=== PATIENT | male | born 1950 | race Caucasian/White ===

== ENCOUNTER → 2018-08-08 | Outpatient (CLI) | payer BC, MEDICARE ==
--- NOTE | 2018-08-08 16:26 | Diagnostic Imaging Report ---
INDICATION: Fatty liver. Ultrasound of the liver and right upper quadrant was performed in the routine fashion and compared to 07/23/2015. The liver shows diffuse increased echogenicity compatible with fatty change. The appearance is similar to the previous study. There is no focal liver lesion visualized. Portal vein is patent. The gallbladder appears unremarkable with no stones or wall thickening. The possible polyp visualized on the previous study of 07/23/2015 is not seen on today's study. Common duct is normal in caliber measuring 4.9 mm. The pancreas is obscured by overlying gas. Right kidney measures 14.3 cm in length x 7.7 x 6.5 cm. There is a cyst in the right kidney measuring about 6.9 x 5.0 x 4.3 cm, unchanged compared to the prior study. There is no ascites. IMPRESSION: Findings compatible with diffuse fatty infiltration of the liver, similar to the prior study. Gallbladder appears unremarkable and there is no biliary dilatation. The possible small polyp visualized on the prior study is not detectable on today's study. There is a stable cyst in the right kidney. Dictated by: Dictated on workstation # [id number]
== END ==
LOC: RAD 08:33
PROVIDERS: ATTEND Internal Medicine
DX: K76.0 Fatty (change of) liver, not elsewhere classified (principal); N28.1 Cyst of kidney, acquired
CPT/HCPCS: 76705

== ENCOUNTER 2020-04-24 18:57 | Emergency (ER) | payer MEDICARE ==
[~2020-04-24] VITALS: Ht 177.8 cm; Wt 85.0 kg
--- NOTE | 2020-04-24 19:26 | ED Neurological Problem ---
General Chief Complaint: General Problems/Pain Stated Complaint: FLASHING LIGHTS IN SIGHT/NAUSEA Nursing Triage Note: PT TO ED W/ C/O "SEEING LIGHTS ET NAUSEA" ONSET 30-60 MINUTES TESTER ARMATURE OR FIELDS. PT REPORTS HAS HAD SIMILAR SYMPTOMS IN THE PAST, ONSET 20YRS AGO ET SINCE THEN EVERY 3 YRS. PT DENIES C/O PAIN AT THIS TIME. Nursing Sepsis Screen: No Definite Risk Source: patient Exam Limitations: no limitations History of Present Illness Date Seen by Provider: Apr 24, 2020 Time Seen by Provider: 19:03 Initial Comments This 69-year-old gentleman with prior history of migraine presents to the emergency room with primary concern about an aura that started 30 to 60 minutes prior to arrival. He describes the aura as a blurriness in his vision that starts centrally and then clears centrally but expands peripherally. The aura is now gone. He describes feeling slightly nauseated throughout the day and generally feeling a little fatigued. He now has developed a slight headache. He did take ibuprofen 400 mg at home. He reports he has had a migraine about every 3 years or so over the past 20 years. He wanted to get checked out today to ensure he was not having a stroke or some other type of serious pathology. He describes no focal neurologic deficits. Allergies and Home Medications Allergies Coded Allergies: Penicillins (Unverified Allergy, Unknown, 04/24/20) Home Medications Ondansetron 4 Mg Tab.rapdis, 4 MG SL Q4H PRN for NAUSEA/VOMITING Prescribed by: MAL LANGSTON on 04/24/201927 Patient Home Medication List Home Medication List Reviewed: Yes Review of Systems Review of Systems Constitutional: no symptoms reported Eyes: See HPI Ears, Nose, Mouth, Throat: no symptoms reported Respiratory: no symptoms reported Cardiovascular: no symptoms reported Gastrointestinal: see HPI Genitourinary: no symptoms reported Musculoskeletal: no symptoms reported Skin: no symptoms reported Psychiatric/Neurological: See HPI Endocrine: No Symptoms Reported Hematologic/Lymphatic: No Symptoms Reported Past Pnycomg-Trxdyk-Mjmzzl Hx Past Med/Social Hx: Reviewed Nursing Past Med/Soc Hx Patient Social History Alcohol Use: Denies Use Recreational Drug Use: No Smoking Status: Never a Smoker Recent Foreign Travel: No Contact w/Someone Who Travel: No Recent Infectious Disease Expo: No Physical Abuse: No Sexual Abuse: No Mistreated: No Fear: No Past Medical History Surgeries: No Respiratory: No Cardiac: No Neurological: Yes Headaches /Migraines Genitourinary: No Gastrointestinal: No Musculoskeletal: No Endocrine: No HEENT: No Cancer: No Psychosocial: No Integumentary: No Blood Disorders: No Physical Exam Vital Signs Vital Signs - First Documented 04/24/20 19:02 Temp 36.9 Pulse 67 Resp 20 B/P (MAP) 161/79 (106) Pulse Ox 67 O2 Delivery Room Air Capillary Refill : Less Than 3 Seconds Height, Weight, BMI Height: '" Weight: lbs. oz. kg; 26.00 BMI Method: General Appearance: WD/WN, no apparent distress HEENT: PERRL/EOMI, normal ENT inspection Neck: normal inspection Respiratory: lungs clear, normal breath sounds, no respiratory distress Cardiovascular: regular rate, rhythm, no edema, no murmur Gastrointestinal: normal bowel sounds, non tender, soft Extremities: normal inspection, no pedal edema Neurologic/Psychiatric: home designer II-XII nml as tested, no motor/sensory deficits, alert, normal mood/affect, oriented x 3 Crainal Nerves: normal hearing, normal speech, PERRL Coordination/Gait: normal finger to nose (Normal gvcl-vn-mbap), normal gait Motor/Sensory: no motor deficit, no sensory deficit Skin: normal color, warm/dry Progress/Results/Core Measures Results/Orders Vital Signs/I&O 04/24/20 04/24/20 19:02 19:37 Temp 36.9 Pulse 67 58 Resp 20 18 B/P (MAP) 161/79 (106) 136/83 Pulse Ox 67 98 O2 Delivery Room Air Room Air Blood Pressure Mean: 106 Progress Progress Note : Progress Note Vital signs were stable. Patient described a classic migraine syndrome with aura that has now improved. Neuro exam was unremarkable. Patient was discharged without any further treatment or work-up. See discharge instructions for discussion. Departure Impression Primary Impression: Migraine with aura Qualified Codes: G43.109 - Migraine with aura, not intractable, without status migrainosus Disposition: 01 HOME, SELF-CARE Condition: Improved Departure-Patient Inst. Decision time for Depature: 19:22 Referrals: JENNY QUEZADA MD (PCP/Family) Primary Care Physician Patient Instructions: Migraines in Adults Add. Discharge Instructions: Your symptoms seem consistent with a migraine aura. At the onset of migraine symptoms you may take ibuprofen and/or Tylenol. It is often helpful to rest in a quiet, calm, dark environment to abort migraine symptoms. Staying well-hydrated and consuming a small amount of caffeine at onset of migraine may also be helpful. Eat a well-balanced diet, get plenty of rest, exercise, and take a multivitamin daily. These general health measures should help prevent migraines in the future. Return to care if you have worsening symptoms. If you ever have symptoms of stroke which might include facial drooping, difficulty with expressing or understanding speech, difficulty walking, numbness or weakness of a body part, abrupt loss of part of your vision, or abrupt confusion, return to the emergency room immediately. All discharge instructions reviewed with patient and/or family. Voiced understanding. Scripts Ondansetron (Ondansetron Odt) 4 Mg Tab.rapdis 4 MG SL Q4H PRN for NAUSEA/VOMITING, #10 TAB Prov: MAL BAUTISTA MD 04/24/20 Copy Copies To 1: JENNY QUEZADA MD, JOSHUA T MD Apr 24, 2020 19:26
[2020-04-24] MEDS ORDERED: ONDA4TAB11 SL (19:28)
[2020-04-24 19:37] VITALS: BP 136/83
--- NOTE | 2020-04-24 19:37 | NUR ---
PT DISCHARGED TO HOME W/ RX ET INSTR. PT TO F/U W/ PCP ET RETURN IF SYMPTOMS CHANGE OR GET WORSE. PT VOICED UNDERSTANDING
== END 2020-04-24 19:37 | disposition home or self-care (01) ==
LOC: EDUNIT# 18:57 → ER 19:02
DX: G43.109 Migraine with aura, not intractable, without status migrainosus (principal); Z88.0 Allergy status to penicillin
CPT/HCPCS: 99281

== ENCOUNTER 2020-08-05 05:35 | Outpatient (CLI) | payer MEDICARE ==
[~2020-08-05] VITALS: Ht 175.3 cm; Wt 85.0 kg
[~2020-08-05 05:35] MED LIST: ONDA4TAB11 SL
== END 2020-08-05 14:11 | disposition home or self-care (01) ==
LOC: PREOP 05:35
PROVIDERS: ATTEND Specialist
DX: Z01.818 Encounter for other preprocedural examination (principal)

== ENCOUNTER 2020-08-08 11:21 | Day surgery (SDC) | payer MEDICARE ==
[~2020-08-08] VITALS: Ht 175.3 cm; Wt 85.0 kg
[2020-08-08 11:35] VITALS: BP 133/93
[2020-08-08] MEDS: TETRACAINE 0.5% OPHTH SOLN 4 ML BTL (SINGLE DOSE ONLY) OU PRN ×4 (11:43→12:03)
[2020-08-08] MEDS ORDERED: TIMOLOL MALEATE 0.5% 5 ML (TIMOPTIC) BTL OU PRN (11:45)
[2020-08-08] MEDS ORDERED: LIDOCAINE PF 1% 2 ML VIAL IR PRN (11:45)
[2020-08-08] MEDS ORDERED: MOXIFLOXACIN OPHTH SOLN 5 MG/ML 0.3 ML SYRINGE OP ONE (11:45)
[2020-08-08] MEDS ORDERED: POVIDONE (BETADINE) OPHTH SOLN 5% 30 ML OP ONE (11:45)
[2020-08-08] MEDS: TROPICAMIDE 1% OPH SOLN (MYDRIACYL) 15 ML BTL OP SCH ×3 (11:53→12:03)
[2020-08-08] MEDS: PHENYLEPHRINE 10% OPHTH (NEO-SYN) 5 ML BTL OU SCH ×3 (11:53→12:03)
--- NOTE | 2020-08-08 12:01 | Ophthalmologist Pre-Op Note ---
Pre-Operative Progress Note H&P Reviewed The H&P was reviewed, patient examined and no changes noted. Date H&P Reviewed: Aug 08, 2020 Time H&P Reviewed: 12:01 Pre-Op Dx Cataract, Right Eye BOB KNAPP MD Aug 08, 2020 12:01
[2020-08-08] MEDS ORDERED: MIDAZOLAM 2 MG/2 ML (VERSED) VIAL ONE (12:03)
--- NOTE | 2020-08-08 12:26 | Ophthalmology Operative Report ---
Cataract removal/placement IOL PREOPERATIVE DIAGNOSIS: Cataract Right Eye POSTOPERATIVE DIAGNOSIS: Cataract Right Eye PROCEDURE: Cataract removal and placement of posterior chamber implant, right eye SURGEON: Benito Knapp ANESTHESIA: Topical with sedation COMPLICATIONS: None ESTIMATED BLOOD LOSS: Minimal DESCRIPTION OF PROCEDURE: After proper informed consent was obtained, the patient, a 69 male, was taken to the Operating Room and the right eye was anesthetized with tetracaine. The right eye was then prepped and draped in the usual manner. A wire lid speculum was placed. A paracentesis was made at the left hand position. Preservative free lidocaine was injected into the anterior chamber followed by viscoelastic. A clear corneal incision was made in the temporal position. A capsulorrhexis was preformed and the central nuclear and cortical material were removed. The posterior capsule was polished and Cruz [id number] 13.0 IOL was placed into the capsular bag. The residual viscoelastic was aspirated and balanced saline solution was injected into the anterior chamber. Moxifloxacin was injected into the anterior chamber. The wound was checked and found to be water tight. The patient tolerated the procedure well without complications. BENITO KNAPP MD Aug 08, 2020 12:26
[2020-08-08] MEDS ORDERED: acetaZOLAMIDE ER 500 MG CAP (DIAMOX SEQUELS) PO ONE (12:30)
[2020-08-08 12:36] VITALS: BP 139/80
--- NOTE | 2020-08-08 12:37 | Anesthesia-General Post-Op ---
MAC Patient Condition Mental Status/LOC: Same as Preop Cardiovascular: Satisfactory Nausea/Vomiting: Absent Respiratory: Satisfactory Pain: Controlled Complications: Absent Post Op Complications Complications None Follow Up Care/Instructions Patient Instructions None needed. Anesthesiology Discharge Order Discharge Order Patient is doing well, no complaints, stable vital signs, no apparent adverse anesthesia problems. No complications reported per nursing. CHRISTIANNE MANCILLA CRNA Aug 08, 2020 12:37
== END 2020-08-08 12:36 | disposition home or self-care (01) ==
LOC: SDC 11:21
PROVIDERS: ATTEND Specialist
DX: H25.11 Age-related nuclear cataract, right eye (principal); N52.9 Male erectile dysfunction, unspecified; Z88.0 Allergy status to penicillin; Z87.891 Personal history of nicotine dependence; Z80.41 Family history of malignant neoplasm of ovary
CPT/HCPCS: 66984; V2632

== ENCOUNTER 2020-08-15 11:18 | Day surgery (SDC) | payer MEDICARE ==
[~2020-08-15] VITALS: Ht 175 cm; Wt 85.0 kg
[2020-08-15] MEDS ORDERED: LIDOCAINE PF 1% 2 ML VIAL IR PRN (11:30)
[2020-08-15] MEDS ORDERED: TIMOLOL MALEATE 0.5% 5 ML (TIMOPTIC) BTL OU PRN (11:30)
[2020-08-15] MEDS ORDERED: MOXIFLOXACIN OPHTH SOLN 5 MG/ML 0.3 ML SYRINGE OP ONE (11:30)
[2020-08-15] MEDS ORDERED: POVIDONE (BETADINE) OPHTH SOLN 5% 30 ML OP ONE (11:30)
[2020-08-15] MEDS: TETRACAINE 0.5% OPHTH SOLN 4 ML BTL (SINGLE DOSE ONLY) OU PRN ×4 (11:36→12:07)
[2020-08-15] MEDS: PHENYLEPHRINE 10% OPHTH (NEO-SYN) 5 ML BTL OU SCH ×3 (11:57→12:07)
[2020-08-15] MEDS: TROPICAMIDE 1% OPH SOLN (MYDRIACYL) 15 ML BTL OP SCH ×3 (11:57→12:07)
[2020-08-15 11:59] VITALS: BP 160/86
[2020-08-15] MEDS ORDERED: MIDAZOLAM 2 MG/2 ML (VERSED) VIAL ONE (12:06)
[2020-08-15] MEDS ORDERED: acetaZOLAMIDE ER 500 MG CAP (DIAMOX SEQUELS) PO ONE (12:30)
--- NOTE | 2020-08-15 12:35 | Ophthalmologist Pre-Op Note ---
Pre-Operative Progress Note H&P Reviewed The H&P was reviewed, patient examined and no changes noted. Date H&P Reviewed: Aug 15, 2020 Time H&P Reviewed: 12:04 Pre-Op Dx Cataract, Left Eye BOB KNAPP MD Aug 15, 2020 12:35
--- NOTE | 2020-08-15 12:36 | Ophthalmology Operative Report ---
Cataract removal/placement IOL PREOPERATIVE DIAGNOSIS: Cataract Left Eye POSTOPERATIVE DIAGNOSIS: Cataract Left Eye PROCEDURE: Cataract removal and placement of posterior chamber implant, left eye SURGEON: Benito Knapp ANESTHESIA: Topical with sedation COMPLICATIONS: None ESTIMATED BLOOD LOSS: Minimal DESCRIPTION OF PROCEDURE: After proper informed consent was obtained, the patient, a 69 male, was taken to the Operating Room and the left eye was anesthetized with tetracaine. The left eye was then prepped and draped in the usual manner. A wire lid speculum was placed. A paracentesis was made at the left hand position. Preservative free lidocaine was injected into the anterior chamber followed by viscoelastic. A clear corneal incision was made in the temporal position. A capsulorrhexis was preformed and the central nuclear and cortical material were removed. The posterior capsule was polished and an Cruz 13.5 [id number] was placed into the capsular bag. The residual viscoelastic was aspirated and balanced saline solution was injected into the anterior chamber. Moxifloxacin was injected into the anterior chamber. The wound was checked and found to be water tight. The patient tolerated the procedure well without complications. BENITO KNAPP MD Aug 15, 2020 12:36
[2020-08-15 12:37] VITALS: BP 144/80
--- NOTE | 2020-08-15 13:08 | Anesthesia-General Post-Op ---
MAC Patient Condition Mental Status/LOC: Same as Preop Cardiovascular: Satisfactory Nausea/Vomiting: Absent Respiratory: Satisfactory Pain: Controlled Complications: Absent Post Op Complications Complications None Follow Up Care/Instructions Patient Instructions None needed. Anesthesiology Discharge Order Discharge Order Patient is doing well, no complaints, stable vital signs, no apparent adverse anesthesia problems. No complications reported per nursing. QUENTIN VILLAGOMEZ CRNA Aug 15, 2020 13:08
== END 2020-08-15 12:42 ==
LOC: SDC 11:18
PROVIDERS: ATTEND Specialist
DX: H25.12 Age-related nuclear cataract, left eye (principal); Z88.0 Allergy status to penicillin; Z87.891 Personal history of nicotine dependence; Z80.41 Family history of malignant neoplasm of ovary
CPT/HCPCS: 66984; V2632

== ENCOUNTER 2020-08-18 19:26 | Emergency (ER) | payer MEDICARE ==
[~2020-08-18] VITALS: Ht 175.3 cm; Wt 86.2 kg
[2020-08-18 19:31] VITALS: BP 145/77
--- NOTE | 2020-08-18 19:49 | ED Integumentary General ---
General Chief Complaint: Skin/Wound Problems Stated Complaint: RASH/POSS REACTION TO EYE DROPS Nursing Triage Note: PT AMB TO TRIAGE WITH COMPLAINT OF RASH ON LEFT CHEEK AND CHEST. STATES STARTED POSSIBLY A DAY AGO. STATES HE HAD CATARACT SURGERY ON TUESDAY. Source: patient Exam Limitations: no limitations History of Present Illness Date Seen by Provider: Aug 18, 2020 Time Seen by Provider: 19:45 Initial Comments To ER with reports of a rash to the left cheek the center of his chest and across the low of his back on both sides. This began a few days ago. He is w orried it might be related to his eyedrops that he was prescribed which are Lotemax and Floxin after cataract surgery last week. He denies any troubles breathing. The rash occasionally itches and the one on his left cheek is a little painful. No history of this. He states that he has had the rash on the low of his back for over 20 years and he gets it about every year. Timing/Duration: constant Severity: moderate Associated Symptoms: denies symptoms Allergies and Home Medications Allergies Coded Allergies: Penicillins (Unverified Allergy, Unknown, 04/24/20) Home Medications No Active Prescriptions or Reported Meds Patient Home Medication List Home Medication List Reviewed: Yes Review of Systems Review of Systems Constitutional: see HPI; No chills, No fever; other (Denies any systemic symp toms) EENTM: see HPI Respiratory: no symptoms reported Cardiovascular: no symptoms reported Genitourinary: no symptoms reported Musculoskeletal: no symptoms reported Skin: no symptoms reported Psychiatric/Neurological: No Symptoms Reported Endocrine: No Symptoms Reported Past Ivzbvde-Yajbuj-Mxsclh Hx Patient Social History Alcohol Use: Denies Use Smoking Status: Never a Smoker Recent Infectious Disease Expo: No Immunizations Up To Date Tetanus Booster (TDap): Unknown Past Medical History Surgeries: Yes Eye Surgery Respiratory: No Cardiac: No Neurological: Yes Headaches /Migraines Genitourinary: No Gastrointestinal: No Musculoskeletal: No Endocrine: No HEENT: No Cancer: No Psychosocial: No Integumentary: No Blood Disorders: No Physical Exam Vital Signs Vital Signs - First Documented 08/18/20 19:31 Pulse 67 Resp 16 B/P (MAP) 145/77 (99) Pulse Ox 97 O2 Delivery Room Air Capillary Refill : Less Than 3 Seconds General Appearance: WD/WN, no apparent distress HEENT: PERRL/EOMI, normal ENT inspection Respiratory: no respiratory distress, no accessory muscle use Extremities: normal range of motion, non-tender Neurologic/Psychiatric: alert, normal mood/affect, oriented x 3 Skin: normal color, warm/dry Skin Problem Character: other (Erythematous papular rash to the center of his upper chest, a few single papules that are erythematous to the left cheek and then 1 single macule on the right side of his low back with a few pustules within it and several darker purple lesions on the left side of the low back.) Progress/Results/Core Measures Results/Orders My Orders Orders - STEFANY FREGOSO APRN Mupirocin Ointment (Bactroban Ointment (08/18/20 21:00) Triamcinolone 0.5% Cream (Kenalog 0.5% C (08/18/20 21:00) Vital Signs/I&O 08/18/20 19:31 Pulse 67 Resp 16 B/P (MAP) 145/77 (99) Pulse Ox 97 O2 Delivery Room Air Blood Pressure Mean: 99 Departure Impression Primary Impression: Rash and other nonspecific skin eruption Disposition: 01 HOME, SELF-CARE Condition: Stable Departure-Patient Inst. Decision time for Depature: 19:48 Referrals: JENNY QUEZADA MD (PCP/Family) Primary Care Physician Patient Instructions: Skin Rash Add. Discharge Instructions: 1. Return to ER for any concerns. Mix the 2 creams together and apply twice a day for 5 days. Follow-up with your doctor later this week for recheck. Return to ER for any worsening. All discharge instructions reviewed with patient and/or family. Voiced understanding. Scripts No Active Prescriptions or Reported Meds STEFANY FREGOSO APRN Aug 18, 2020 19:49
[2020-08-18] MEDS ORDERED: TRIAMCINOLONE 0.1% CR (KENALOG) 15 GM TUBE ONE (19:56)
[2020-08-18] MEDS ORDERED: TRIAMCINOLONE 0.1% CR (KENALOG) 15 GM TUBE TOP SCH (21:00)
[2020-08-18] MEDS ORDERED: TRIAMCINOLONE 0.5% CR (KENALOG) 15 GM TUBE TOP SCH (21:00)
[2020-08-18] MEDS ORDERED: MUPIROCIN 2% OINT 22 GM (BACTROBAN) TUBE TOP SCH (21:00)
== END 2020-08-18 20:15 | disposition home or self-care (01) ==
LOC: EDUNIT# 19:26 → ER 19:27
DX: R21 Rash and other nonspecific skin eruption (principal); Z88.0 Allergy status to penicillin; Z98.890 Other specified postprocedural states
CPT/HCPCS: 99283

== ENCOUNTER 2022-09-28 20:22 | Emergency (ER) | payer MEDICARE ==
[~2022-09-28] VITALS: Ht 172.7 cm; Wt 86.2 kg
[2022-09-28 20:28] VITALS: BP 138/92
--- NOTE | 2022-09-28 20:51 | ED Head Injury ---
General Chief Complaint: Trauma-Non Activation Stated Complaint: EYE PAIN Nursing Triage Note: pt ambulatory to room. states he fell forward into his car and hit his right eyebrow on the top of the car above the car door. pt denies loc. pt has small lac to right eyebrow with slight bruising and swelling. pt does not take blood thinners. denies headache, dizziness, or vision problems Source: patient Exam Limitations: no limitations History of Present Illness Date Seen by Provider: September 28, 2022 Time Seen by Provider: 20:35 Initial Comments This 72-year-old gentleman presents to the emergency room with head injury and shallow laceration to the right brow. He was lifting a case of bottles of water out of his vehicle when he tipped forward and struck his brow on the door frame. There was no loss of consciousness. He does state he hit his head rather hard. He does have some headache but denies any other signs or symptoms of concussion such as loss of consciousness, confusion, nausea, vision change, etc. He denies any diplopia. Allergies and Home Medications Allergies Coded Allergies: Penicillins (Unverified Allergy, Unknown, 04/24/20) Patient Home Medication List Home Medication List Reviewed: Yes No Active Prescriptions or Reported Meds Review of Systems Review of Systems Constitutional: no symptoms reported Eyes: No Symptoms Reported Ears, Nose, Mouth, Throat: no symptoms reported Respiratory: no symptoms reported Cardiovascular: no symptoms reported Gastrointestinal: no symptoms reported Genitourinary: no symptoms reported Musculoskeletal: no symptoms reported Skin: see HPI Psychiatric/Neurological: No Symptoms Reported Endocrine: No Symptoms Reported Hematologic/Lymphatic: No Symptoms Reported Past Zrsneyl-Aahebf-Vbkrub Hx Patient Social History Tobacco Use?: No Smoking Status: Former Smoker Use of E-Cig and/or Vaping dev: No Substance use?: No Alcohol Use?: No Immunizations Up To Date Tetanus Booster (TDap): Unknown Influenza Vaccine Up-to-Date: No; Not Current Past Medical History Surgeries: Yes Eye Surgery (Cataracts) Respiratory: No Cardiac: No Neurological: Yes Headaches /Migraines Genitourinary: No Gastrointestinal: No Musculoskeletal: Yes (Chronic knee pain) Endocrine: Yes Diabetes, Non-Insulin dep (Borderline) HEENT: Yes Cataract Cancer: No Psychosocial: No Integumentary: No Blood Disorders: No Physical Exam Vital Signs Vital Signs - First Documented 5/16/23 20:28 Temp 36.7 Pulse 70 Resp 18 B/P (MAP) 138/92 (107) Pulse Ox 94 Capillary Refill : Height, Weight, BMI Height: '" Weight: lbs. oz. kg; 28.00 BMI Method: General Appearance: WD/WN, no apparent distress HEENT: PERRL/EOMI, TMs normal, other (Shallow laceration on the lateral edge of the right brow that is now scabbed over. Minimal swelling and bruising associated with this wound. No apparent bony injury.) Neck: normal inspection Cardiovascular: regular rate, rhythm, no edema, no murmur Respiratory: lungs clear, normal breath sounds, no respiratory distress Crainal Nerves: normal hearing, normal speech, PERRL Motor/Sensory: no motor deficit, no sensory deficit Skin: warm/dry, ecchymosis Nora Coma Score Best Eye Response: (4) Open Spontaneously Best Verbal Response: (5) Oriented Best Motor Response: (6) Obeys Commands [place] Total: 15 Progress/Results/Core Measures Results/Orders My Orders Orders - MAL BAUTISTA MD Dipht,Pertuss(Acell),Tet Adult (Boostrix (09/28/22 21:00) Medications Given in ED Current Medications Medications Dose Ordered Sig/Rogelio Route Start Time Stop Time Status Last Admin Dose Admin Diphtheria/ Tetanus/Acell Pertussis 0.5 ml ONCE ONCE IM 09/28/22 21:00 09/28/22 21:01 DC 09/28/22 21:04 0.5 ML Vital Signs/I&O Blood Pressure Mean: 107 Progress Progress Note : Progress Note The wound did not require repair. There was no concern for concussion or intracranial hemorrhage based on mechanism and symptoms. Patient is not on any blood thinning medications. Antibiotic ointment was applied to the wound and patient was discharged with return precautions. Departure Impression Primary Impression: Minor head injury Qualified Codes: S09.90XA - Unspecified injury of head, initial encounter Additional Impression: Laceration of brow without complication Qualified Codes: S01.81XA - Laceration without foreign body of other part of head, initial encounter Disposition: 01 HOME, SELF-CARE Condition: Stable Departure-Patient Inst. Decision time for Depature: 20:52 Referrals: [facility] (PCP/Family) Primary Care Physician Patient Instructions: Minor Head Injury Add. Discharge Instructions: Monitor for signs of wound infection such as increasing redness, increasing swelling, puslike drainage, or fever. Return to care if you notice the sympto ms. Return to care if you develop concerning neurologic symptoms of concussion such as escalating headache, changes in vision, confusion, nausea or vomiting, etc. Expect some soreness in your arm from the tetanus immunization for the next few days. All discharge instructions reviewed with patient and/or family. Voiced understanding. Scripts No Active Prescriptions or Reported Meds MAL BAUTISTA MD September 28, 2022 20:51
[2022-09-28] MEDS ORDERED: TETANUS,DIPTH,PERTUSS P/F (BOOSTRIX) 0.5 ML VIAL IM ONE (21:00)
== END 2022-09-28 21:40 | disposition home or self-care (01) ==
LOC: EDUNIT# 20:22 → ER 20:24
DX: S09.90XA Unspecified injury of head, initial encounter (principal); S01.111A Laceration without foreign body of right eyelid and periocular area, initial encounter; Z87.891 Personal history of nicotine dependence; Z23 Encounter for immunization; W01.198A Fall on same level from slipping, tripping and stumbling with subsequent striking against other object, initial encounter; Y92.810 Car as the place of occurrence of the external cause
CPT/HCPCS: 90715; 99284